=== PATIENT | female | born 1935 | race Asian ===

== ENCOUNTER 2017-03-14 06:48 | Inpatient (IN) | payer MEDICARE, OTHER ==
[~2017-03-14] VITALS: Ht 152.4 cm; Wt 43.4 kg
[~2017-03-14 06:48] MED LIST: LISI10TA7 PO; METO50TA5 PO; SIMV20TA6 PO
[2017-03-14] MEDS ORDERED: MORP10CA8 PO (06:55)
[2017-03-14] MEDS ORDERED: HYDR-3971 PO (06:55)
[2017-03-14] MEDS ORDERED: LOSA25TA2 PO (06:55)
[2017-03-14 07:23] LABS: BASOPHILS # (AUTO) 0.04 K/uL (0.00-0.20); BASOPHILS % (AUTO) 0.3 % (0.0-2.0); EOSINOPHILS # (AUTO) 0.27 K/uL (0.00-0.70); HEMATOCRIT 34.3 % (36-46); LYMPHOCYTES # (AUTO) 0.6 K/uL (1.0-4.8); LYMPHOCYTES % (AUTO) 4.9 % (22.0-44.0); MEAN CORPUSCULAR HGB CONC 32.2 G/dL (31.0-37.0); MEAN CORPUSCULAR VOLUME 84 fL (80-100); MONOCYTES # (AUTO) 0.6 K/uL (0.1-1.0); MONOCYTES % (AUTO) 4.6 % (2.0-9.0); NEUTROPHILS # (AUTO) 11.2 K/uL (1.8-7.7); PLATELET COUNT (AUTO) 267 K/uL (150-450); RED BLOOD CELL COUNT(AUTO) 4.08 MIL/uL (4.00-5.20); RED CELL DISTRIBUTION WIDTH 14.9 % (11.5-14.5); WHITE BLOOD COUNT (AUTO) 12.7 K/uL (4.5-11.0)
[2017-03-14 07:26] LABS: NEUTROPHILS % (AUTO) 88.1 % (40.0-70.0)
[2017-03-14 07:36] LABS: PROTHROMBIN TIME 10.8 SEC (9.4-11.6)
[2017-03-14 07:41] LABS: RBC MORPHOLOGY COMMENT NORMAL RBC MORPH
[2017-03-14 07:46] LABS: CREATININE 1.13 mg/dL (0.60-1.30); POTASSIUM 4.1 mmol/L (3.5-5.1)
[2017-03-14 07:52] LABS: ALBUMIN 2.6 g/dL (3.4-5.0); BILIRUBIN,TOTAL 0.4 mg/dL (0.1-1.0); TOTAL PROTEIN, SERUM 7.5 g/dL (6.4-8.2)
[2017-03-14 08:08] LABS: GLUCOSE, URINE (UA) NEGATIVE (NEGATIVE); KETONES,URINE NEGATIVE (NEGATIVE); LEUKOCYTE ESTERASE ,URINE MODERATE (NEGATIVE); OCCULT BLOOD,URINE NEGATIVE (NEGATIVE); PROTEIN,URINE TRACE (NEGATIVE)
[2017-03-14 08:16] LABS: ADD UA MICROSCOPIC YES; APPEARANCE,URINE SLIGHTLY CLOUDY (CLEAR); RBC,URINE 0-2 /HPF (0-2)
[2017-03-14 08:17] LABS: SQUAMOUS EPITHELIAL CELL,UR Few /LPF (None Seen)
[2017-03-14] MEDS ORDERED: LORazepam 2 MG/ML VIAL IVP ONE (08:45)
[2017-03-14] MEDS ORDERED: HALOPERIDOL LACTATE 5 MG/ML VIAL IVP ONE (08:45)
[2017-03-14] MEDS ORDERED: DiphenhydrAMINE HCL 50 MG/ML VIAL IVP ONE (08:45)
[2017-03-14] MEDS ORDERED: ACETAMINOPHEN 325 MG TABLET PO PRN (09:00)
[2017-03-14] MEDS ORDERED: MAGNESIUM HYDROXIDE SUSPENSION 30 ML UDCUP PO PRN (09:00)
[2017-03-14] MEDS ORDERED: LORazepam 2 MG/ML VIAL IVP PRN (09:00)
[2017-03-14] MEDS ORDERED: ALBUTEROL SULFATE 2.5 MG/0.5 ML NEB SOLUTION NEB PRN (09:00)
[2017-03-14] MEDS ORDERED: LORazepam 2 MG/ML VIAL IM ONE (09:15)
[2017-03-14] MEDS ORDERED: DiphenhydrAMINE HCL 50 MG/ML VIAL IM ONE (09:15)
[2017-03-14] MEDS ORDERED: HALOPERIDOL LACTATE 5 MG/ML VIAL IM ONE (09:15)
[2017-03-14] MEDS: PANTOPRAZOLE SODIUM 40 MG DR TABLET PO SCH (09:24)
[2017-03-14] MEDS: HEPARIN SODIUM,PORCINE 5,000 UNITS/ML VIAL SQ SCH ×2 (09:24→21:09)
[2017-03-14] MEDS: DOCUSATE SODIUM 100 MG CAPSULE PO SCH ×2 (09:24→21:09)
[2017-03-14] MEDS: ASPIRIN 81 MG CHEWABLE TABLET PO SCH (09:24)
[2017-03-14] MEDS: CefTRIAXone 1 GM/DEXTROSE 50 ML IV SCH (09:25)
[2017-03-14] MEDS ORDERED: MORP15 PO (16:55)
[2017-03-14] MEDS ORDERED: METOPROLOL TARTRATE 50 MG TABLET PO ONE (17:00)
[2017-03-14 20:35] VITALS: BP 107/80
[2017-03-14] MEDS ORDERED: SIMVASTATIN 20 MG TABLET PO SCH (21:00)
[2017-03-14 23:19] VITALS: BP 110/83
[2017-03-15 04:33] VITALS: BP 116/79
[2017-03-15 06:20] LABS: BASOPHILS % (AUTO) 0.5 % (0.0-2.0); EOSINOPHILS % (AUTO) 1.8 % (1.0-6.0); HEMATOCRIT 32.9 % (36-46); HEMOGLOBIN 10.4 g/dL (12.0-16.0); LYMPHOCYTES # (AUTO) 0.8 K/uL (1.0-4.8); LYMPHOCYTES % (AUTO) 6.7 % (22.0-44.0); MEAN CORPUSCULAR HGB CONC 31.7 G/dL (31.0-37.0); MEAN CORPUSCULAR VOLUME 85 fL (80-100); MONOCYTES # (AUTO) 0.8 K/uL (0.1-1.0); MONOCYTES % (AUTO) 6.3 % (2.0-9.0); NEUTROPHILS # (AUTO) 10.5 K/uL (1.8-7.7); NEUTROPHILS % (AUTO) 84.7 % (40.0-70.0); PLATELET COUNT (AUTO) 281 K/uL (150-450); RED BLOOD CELL COUNT(AUTO) 3.86 MIL/uL (4.00-5.20); RED CELL DISTRIBUTION WIDTH 14.8 % (11.5-14.5); WHITE BLOOD COUNT (AUTO) 12.4 K/uL (4.5-11.0)
[2017-03-15 06:51] LABS: ALBUMIN 2.4 g/dL (3.4-5.0); BILIRUBIN,TOTAL 0.4 mg/dL (0.1-1.0); CALCIUM, TOTAL 8.9 mg/dL (8.8-10.5); CREATININE 1.11 mg/dL (0.60-1.30); MAGNESIUM 2.1 mg/dL (1.80-2.40); TOTAL PROTEIN, SERUM 6.9 g/dL (6.4-8.2)
[2017-03-15 07:32] VITALS: BP 106/47
[2017-03-15] MEDS: DOCUSATE SODIUM 100 MG CAPSULE PO SCH (08:06)
[2017-03-15] MEDS: ASPIRIN 81 MG CHEWABLE TABLET PO SCH (08:06)
[2017-03-15] MEDS: HEPARIN SODIUM,PORCINE 5,000 UNITS/ML VIAL SQ SCH (08:06)
[2017-03-15] MEDS: PANTOPRAZOLE SODIUM 40 MG DR TABLET PO SCH (08:08)
[2017-03-15] MEDS ORDERED: SODIUM CHLORIDE 0.9% 250 ML IV ONE (08:42)
[2017-03-15] MEDS: CefTRIAXone 1 GM/DEXTROSE 50 ML IV SCH (08:52)
[2017-03-15] MEDS ORDERED: LOSARTAN POTASSIUM 25 MG TABLET PO SCH (09:00)
[2017-03-15] MEDS ORDERED: METOPROLOL TARTRATE 25 MG TABLET PO SCH (09:00)
[2017-03-15] MEDS ORDERED: ASPIRIN 81 MG EC TABLET PO SCH (09:00)
[2017-03-15 11:50] VITALS: BP 113/52
[2017-03-15 16:08] VITALS: BP 109/58
[2017-03-15] MEDS ORDERED: SIMVASTATIN 20 MG TABLET PO SCH (21:00)
[2017-03-19 19:57] LABS: GLUCOSE,POINT OF CARE 95 MG/DL (70-110)
== END 2017-03-15 17:48 | disposition home or self-care (01) | DRG 308 ==
LOC: EMS 06:49 → 5S 17:17
PROVIDERS: ADMIT Internal Medicine; ATTEND Internal Medicine
DX: I49.5 Sick sinus syndrome (principal); G93.40 Encephalopathy, unspecified; N39.0 Urinary tract infection, site not specified; I47.2 Ventricular tachycardia; R55 Syncope and collapse; F03.90 Unspecified dementia, unspecified severity, without behavioral disturbance, psychotic disturbance, mood disturbance, and anxiety; F99 Mental disorder, not otherwise specified; I48.91 Unspecified atrial fibrillation; K81.9 Cholecystitis, unspecified; F09 Unspecified mental disorder due to known physiological condition; D72.829 Elevated white blood cell count, unspecified; I10 Essential (primary) hypertension; D64.9 Anemia, unspecified; J44.9 Chronic obstructive pulmonary disease, unspecified; E78.00 Pure hypercholesterolemia, unspecified; C53.9 Malignant neoplasm of cervix uteri, unspecified; Z78.1 Physical restraint status; Z86.73 Personal history of transient ischemic attack (TIA), and cerebral infarction without residual deficits; Z79.899 Other long term (current) drug therapy; Z91.19 Patient's noncompliance with other medical treatment and regimen
CPT/HCPCS: 70450; 82962; 83735; 87040; 87086; 93005; 93288; 93306; 93880; 96372; 99285; J0696; J1200; J1630; J1644; J2060; J7050